=== PATIENT | female | born 1980 | race Caucasian/White ===

== ENCOUNTER 2018-09-09 15:54 | Emergency (ER) | payer BC ==
[~2018-09-09] VITALS: Ht 157.5 cm; Wt 67.6 kg
[2018-09-09 16:07] VITALS: BP 171/98
--- NOTE | 2018-09-09 16:10 | NUR ---
PATIENT AMBULATED WITH PARENT TO BED 6
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
[2018-09-09] MEDS ORDERED: KETOROLAC 60 MG/2 ML VIAL IM ONE ×2 (16:55→17:24)
[2018-09-09 17:49] VITALS: BP 175/90
== END 2018-09-09 17:49 | disposition home or self-care (01) ==
LOC: MED 15:54
DX: R51 Headache (principal); I10 Essential (primary) hypertension; F41.9 Anxiety disorder, unspecified; Z98.890 Other specified postprocedural states
CPT/HCPCS: 96372; 99283; J1885

== ENCOUNTER 2023-10-25 20:00 | Inpatient (IN) | payer BC ==
[~2023-10-25] VITALS: Ht 157.5 cm; Wt 57.4 kg
[2023-10-25] MEDS: NACL 0.9% 1,000 ML IV ONE ×2 (00:15→20:55)
[2023-10-25 20:04] VITALS: BP_SYST 138; BP_SYST 153; BP_DIAS 84; BP_DIAS 89; PULSE 130; RESP 16; RESP 40; TEMP 101; O2SAT 96; O2SAT 98
[2023-10-25] MEDS: ACETAMINOPHEN EXTRA STRENGTH 500 MG TAB PO ONE (21:01)
[2023-10-25 21:04] LABS: BASOPHILS % (AUTO) 0.9 % (0.0-2.0); EOSINOPHILS % (AUTO) 0.3 % (0.0-4.0); HEMATOCRIT 21.9 % (36-48); HEMOGLOBIN 7.2 g/dL (12.0-16.0); LYMPHOCYTES # (AUTO) 0.4 K/uL (2.5-16.5); LYMPHOCYTES % (AUTO) 10.5 % (20.5-51.1); MEAN CORPUSCULAR HEMOGLOBIN 25 pg (27-31); MEAN CORPUSCULAR HGB CONC 33 g/dL (33-37); MONOCYTES # (AUTO) 0.1 K/uL (0.8-1.0); MONOCYTES % (AUTO) 2.7 % (1.7-9.3); NEUTROPHILS # (AUTO) 3.1 K/uL (1.8-7.7); NEUTROPHILS % (AUTO) 85.6 % (42.2-75.2); PLATELET COUNT (AUTO) 305 K/uL (140-450); RED BLOOD CELL COUNT(AUTO) 2.88 MIL/uL (4.20-5.40); RED CELL DISTRIBUTION WIDTH 17.2 % (11.6-13.7); WHITE BLOOD COUNT (AUTO) 3.6 K/uL (4.8-10.8)
[2023-10-25 21:23] LABS: ANION GAP 10.5 (8-16); CALCIUM 8.7 mg/dL (8.5-10.1); CARBON DIOXIDE 26.8 mmol/L (21-32); CREATININE 0.5 mg/dL (0.6-1.3); POTASSIUM 4.3 mmol/L (3.5-5.1)
[2023-10-25 21:30] LABS: ALANINE AMINOTRANSFERASE 132 U/L (12-78); ALBUMIN 2.1 g/dL (3.4-5.0); ALKALINE PHOSPHATASE 540 U/L (50-136); ASPARTATE AMINOTRANSFERASE 251 U/L (15-37); BILIRUBIN,DIRECT 0.5 mg/dL (0.0-0.3); CREATINE KINASE, TOTAL 6 U/L (26-192); FLU A ANTIGEN negative (NEGATIVE); FLU B ANTIGEN negative (NEGATIVE); TOTAL BILIRUBIN 0.7 mg/dL (0.0-1.0)
[2023-10-25 21:32] LABS: LACTIC ACID 0.9 mmol/L (0.4-2.0)
[2023-10-25 21:36] LABS: INR 1.04 (0.8-1.2); PROTHROMBIN TIME 10.9 secs (10.8-13.4)
[2023-10-25 21:42] LABS: PARTIAL THROMBOPLASTIN TIME 18.1 secs (22-35.6)
[2023-10-25 21:57] LABS: BLOOD GAS BASE EXCESS 1.4 mmol/L (-2.0-3.0); BLOOD GAS HCO3 24.1 mmol/L (21.0-28.0); BLOOD GAS O2 SAT% 90.8 % (94.0-98.0); BLOOD GAS PCO2 30.4 mmHg (32.0-45.0); BLOOD GAS PH 7.517 (7.350-7.450); BLOOD GAS PO2 56.5 mmHg (83.0-108.0)
[2023-10-25 22:09] LABS: APPEARANCE,URINE CLEAR (CLEAR); BILIRUBIN,URINE NEGATIVE (NEGATIVE); BLOOD, URINE NEGATIVE (NEGATIVE); COLOR,URINE YELLOW (YELLOW); LEUKOCYTE ESTERASE ,URINE NEGATIVE (NEGATIVE); NITRITE, URINE NEGATIVE (NEGATIVE); PH,URINE 7.5 (5.0-9.0); PROTEIN,URINE NEGATIVE (NEGATIVE); UGLUCOSE NEGATIVE (NEGATIVE); UROBILINOGEN,URINE 0.2 EU/dL (0.2 - 1)
[2023-10-25] MEDS ORDERED: cefTRIAXone 1,000 MG VIAL ONE (23:01)
[2023-10-25] MEDS: AZITHROMYCIN 250 MG TAB PO ONE (23:11)
[2023-10-25 23:14] VITALS: PULSE 103; RESP 22; O2SAT 95
[2023-10-25] MEDS: ALBUTEROL SULFATE/IPRATROPIU 3 ML SOL IH ONE (23:14)
[2023-10-26] VITALS (8 sets, daily range): BP systolic 125–140; BP diastolic 78–88; PULSE 101–125; RESP 18–22; TEMP 97.6–99.5; O2SAT 93–99
[2023-10-26 06:57] LABS: BASOPHILS % (AUTO) 0.4 % (0.0-2.0); EOSINOPHILS % (AUTO) 0.3 % (0.0-4.0); HEMATOCRIT 26.1 % (36-48); HEMOGLOBIN 8.5 g/dL (12.0-16.0); LYMPHOCYTES # (AUTO) 0.4 K/uL (2.5-16.5); LYMPHOCYTES % (AUTO) 12.3 % (20.5-51.1); MEAN CORPUSCULAR HEMOGLOBIN 25 pg (27-31); MEAN CORPUSCULAR HGB CONC 32 g/dL (33-37); MEAN CORPUSCULAR VOLUME 76.8 fL (80-94); MONOCYTES # (AUTO) 0.1 K/uL (0.8-1.0); MONOCYTES % (AUTO) 3.6 % (1.7-9.3); NEUTROPHILS # (AUTO) 2.9 K/uL (1.8-7.7); NEUTROPHILS % (AUTO) 83.4 % (42.2-75.2); PLATELET COUNT (AUTO) 335 K/uL (140-450); RED CELL DISTRIBUTION WIDTH 17.6 % (11.6-13.7); WHITE BLOOD COUNT (AUTO) 3.5 K/uL (4.8-10.8)
[2023-10-26 07:05] LABS: ANION GAP 12.8 (8-16); CALCIUM 8.5 mg/dL (8.5-10.1); CARBON DIOXIDE 23.3 mmol/L (21-32); CREATININE 0.5 mg/dL (0.6-1.3); POTASSIUM 4.1 mmol/L (3.5-5.1)
[2023-10-26 07:08] LABS: MAGNESIUM 1.2 mg/dL (1.8-2.4); PHOSPHORUS 4.2 mg/dL (2.5-4.9)
[2023-10-26] MEDS ORDERED: POTASSIUM CHLORIDE 10 MEQ TABER PO PRN (11:35)
[2023-10-26] MEDS: LEVALBUTEROL 1.25 MG/0.5 ML NEBU INH SCH (11:59)
[2023-10-26] MEDS: AZITHROMYCIN 500 MG in DEXTROSE 5% 250 ML IV SCH (12:13)
[2023-10-26 13:35] LABS: AMPHETAMINE, URINE NEGATIVE ng/ml (NEG <=1000); BARBITURATE, URINE NEGATIVE ng/ml (NEG <=200); BENZODIAZEPINE, URINE NEGATIVE ng/mL (NEG <=200); CANNABINOID, URINE NEGATIVE ng/mL (NEG <=50); COCAINE, URINE NEGATIVE ng/mL (NEG <=300); OPIATE, URINE NEGATIVE ng/mL (NEG <=2000); PHENCYCLIDINE SCREEN,URINE NEGATIVE ng/mL (NEG <=25)
[2023-10-26] MEDS: ONDANSETRON 4 MG/2 ML VIAL IVP PRN (16:49)
[2023-10-26] MEDS: MAGNESIUM OXIDE 400 MG TAB PO PRN (19:19)
[2023-10-26] MEDS: ACETAMINOPHEN 325 MG TAB PO PRN (20:00)
[2023-10-26] MEDS ORDERED: AZITHROMYCIN 500 MG in DEXTROSE 5% 250 ML IV SCH (21:00)
[2023-10-27] VITALS (7 sets, daily range): BP systolic 117–140; BP diastolic 68–70; PULSE 96–117; RESP 16–20; TEMP 97.2–98.9; O2SAT 95–97
[2023-10-27 06:33] LABS: BASOPHILS % (AUTO) 0.2 % (0.0-2.0); EOSINOPHILS % (AUTO) 0.2 % (0.0-4.0); HEMATOCRIT 23.7 % (36-48); HEMOGLOBIN 7.7 g/dL (12.0-16.0); LYMPHOCYTES # (AUTO) 0.4 K/uL (2.5-16.5); LYMPHOCYTES % (AUTO) 13.1 % (20.5-51.1); MEAN CORPUSCULAR HEMOGLOBIN 25 pg (27-31); MEAN CORPUSCULAR HGB CONC 33 g/dL (33-37); MEAN CORPUSCULAR VOLUME 76.3 fL (80-94); MONOCYTES # (AUTO) 0.1 K/uL (0.8-1.0); MONOCYTES % (AUTO) 2.8 % (1.7-9.3); NEUTROPHILS # (AUTO) 2.8 K/uL (1.8-7.7); NEUTROPHILS % (AUTO) 83.7 % (42.2-75.2); PLATELET COUNT (AUTO) 375 K/uL (140-450); RED BLOOD CELL COUNT(AUTO) 3.11 MIL/uL (4.20-5.40); RED CELL DISTRIBUTION WIDTH 17.3 % (11.6-13.7); WHITE BLOOD COUNT (AUTO) 3.3 K/uL (4.8-10.8)
[2023-10-27 06:50] LABS: ALBUMIN 1.9 g/dL (3.4-5.0); CALCIUM 8.3 mg/dL (8.5-10.1); CREATININE 0.5 mg/dL (0.6-1.3); MAGNESIUM 1.5 mg/dL (1.8-2.4); PHOSPHORUS 4.2 mg/dL (2.5-4.9); POTASSIUM 4.1 mmol/L (3.5-5.1); TOTAL BILIRUBIN 0.7 mg/dL (0.0-1.0); TOTAL PROTEIN, SERUM 6.8 g/dL (6.4-8.2)
[2023-10-27 06:56] LABS: ANION GAP 11.7 (8-16); CARBON DIOXIDE 25.4 mmol/L (21-32)
[2023-10-27 19:56] LABS: APPEARANCE,SPUN,BODY FLUID CLEAR (CLEAR); APPEARANCE,UNSPUN,BODY FLUID CLEAR (CLEAR); COLOR,BODY FLUID LT YELLOW (LT YELLOW); SPECIMENTYPE,BODY FLUID THORACENTESIS; TOTAL VOLUME,BODY FLUID 550 mL
[2023-10-27 20:19] LABS: RBC, BODY FLUID 28 /cu. mm.; WBC, BODY FLUID 2 /cu. mm.
[2023-10-27 20:20] LABS: POLYNUCLEAR, BODY FLUID 0 %
[2023-10-27 20:24] LABS: GLUCOSE,BODY FLUID 89 mg/dL
[2023-10-27] MEDS: MAGNESIUM OXIDE 400 MG TAB PO PRN (22:58)
[2023-10-28] VITALS (7 sets, daily range): BP systolic 115–139; BP diastolic 75–83; PULSE 94–117; RESP 16–18; TEMP 97.7–98.1; O2SAT 93–99
[2023-10-28 06:42] LABS: EOSINOPHILS % (AUTO) 0.1 % (0.0-4.0); HEMATOCRIT 23.4 % (36-48); HEMOGLOBIN 7.7 g/dL (12.0-16.0); LYMPHOCYTES # (AUTO) 0.4 K/uL (2.5-16.5); MEAN CORPUSCULAR HEMOGLOBIN 25 pg (27-31); MEAN CORPUSCULAR HGB CONC 33 g/dL (33-37); MEAN CORPUSCULAR VOLUME 76.3 fL (80-94); MONOCYTES # (AUTO) 0.2 K/uL (0.8-1.0); MONOCYTES % (AUTO) 5.7 % (1.7-9.3); NEUTROPHILS # (AUTO) 2.7 K/uL (1.8-7.7); NEUTROPHILS % (AUTO) 82.2 % (42.2-75.2); PLATELET COUNT (AUTO) 368 K/uL (140-450); RED BLOOD CELL COUNT(AUTO) 3.06 MIL/uL (4.20-5.40); RED CELL DISTRIBUTION WIDTH 17.6 % (11.6-13.7); WHITE BLOOD COUNT (AUTO) 3.3 K/uL (4.8-10.8)
[2023-10-28 06:48] LABS: ALBUMIN 1.9 g/dL (3.4-5.0); ANION GAP 10.9 (8-16); CARBON DIOXIDE 26.2 mmol/L (21-32); CREATININE 0.5 mg/dL (0.6-1.3); MAGNESIUM 1.5 mg/dL (1.8-2.4); PHOSPHORUS 3.2 mg/dL (2.5-4.9); POTASSIUM 4.1 mmol/L (3.5-5.1); TOTAL BILIRUBIN 0.6 mg/dL (0.0-1.0); TOTAL PROTEIN, SERUM 6.7 g/dL (6.4-8.2)
[2023-10-28 09:06] LABS: HEPATITIS A ANTIBODY IGM Negative (Negative); HEPATITIS B CORE AB TOTAL Negative (Negative); HEPATITIS B CORE, IGM Negative (Negative); HEPATITIS B SURFACE ANTIBODY Reactive (.); HEPATITIS B SURFACE ANTIGEN Negative (Negative); HEPATITIS C VIRUS ANTIBODY Non Reactive (Non Reactive)
[2023-10-28] MEDS: METOPROLOL SUCCINATE 50 MG TABER PO SCH (12:14)
[2023-10-29] VITALS (8 sets, daily range): BP systolic 118–122; BP diastolic 70–80; PULSE 85–119; RESP 16–30; TEMP 97.4–98.5; O2SAT 94–100
[2023-10-29 06:51] LABS: LYMPHOCYTES # (AUTO) 0.4 K/uL (2.5-16.5); MONOCYTES # (AUTO) 0.1 K/uL (0.8-1.0); NEUTROPHILS # (AUTO) 1.9 K/uL (1.8-7.7)
[2023-10-29 07:03] LABS: BASOPHILS % (AUTO) 0.5 % (0.0-2.0); EOSINOPHILS % (AUTO) 0.9 % (0.0-4.0); HEMATOCRIT 21.6 % (36-48); LYMPHOCYTES % (AUTO) 15.9 % (20.5-51.1); MEAN CORPUSCULAR HEMOGLOBIN 25 pg (27-31); MEAN CORPUSCULAR HGB CONC 33 g/dL (33-37); MEAN CORPUSCULAR VOLUME 76.2 fL (80-94); MONOCYTES % (AUTO) 4.9 % (1.7-9.3); NEUTROPHILS % (AUTO) 77.8 % (42.2-75.2); PLATELET COUNT (AUTO) 324 K/uL (140-450); RED BLOOD CELL COUNT(AUTO) 2.84 MIL/uL (4.20-5.40); RED CELL DISTRIBUTION WIDTH 17.5 % (11.6-13.7)
[2023-10-29 07:04] LABS: ALBUMIN 1.8 g/dL (3.4-5.0); ANION GAP 10.6 (8-16); CARBON DIOXIDE 25.1 mmol/L (21-32); CREATININE 0.5 mg/dL (0.6-1.3); MAGNESIUM 1.7 mg/dL (1.8-2.4); PHOSPHORUS 3.5 mg/dL (2.5-4.9); POTASSIUM 3.7 mmol/L (3.5-5.1); TOTAL BILIRUBIN 0.5 mg/dL (0.0-1.0); TOTAL PROTEIN, SERUM 6.3 g/dL (6.4-8.2)
[2023-10-29 07:37] LABS: WHITE BLOOD COUNT (AUTO) 2.4 K/uL (4.8-10.8)
[2023-10-29 07:39] LABS: HEMOGLOBIN 7.1 g/dL (12.0-16.0)
[2023-10-29] MEDS ORDERED: LEVOFLOXACIN 750 MG/D5W PREMIX 150 ML IV SCH (11:35)
[2023-10-29] MEDS: metroNIDAZOLE 500 MG/NS PREMIX 100 ML IV SCH (14:59)
[2023-10-29] MEDS: LEVOFLOXACIN 750 MG/D5W PREMIX 150 ML IV SCH (21:40)
[2023-10-29] MEDS: LEVALBUTEROL 1.25 MG/0.5 ML NEBU INH PRN (23:21)
[2023-10-29 23:25] LABS: HEMATOCRIT 32.6 % (36-48); HEMOGLOBIN 10.9 g/dL (12.0-16.0)
[2023-10-30] VITALS (9 sets, daily range): BP systolic 128–149; BP diastolic 80–82; PULSE 95–114; RESP 16–20; TEMP 98.1–98.7; O2SAT 91–98
[2023-10-30] MEDS: MORPHINE SULFATE 4 MG/ML SYR IVP PRN (00:16)
[2023-10-30 10:00] LABS: BASOPHILS % (AUTO) 0.4 % (0.0-2.0); HEMATOCRIT 31.4 % (36-48); HEMOGLOBIN 10.3 g/dL (12.0-16.0); LYMPHOCYTES # (AUTO) 0.4 K/uL (2.5-16.5); LYMPHOCYTES % (AUTO) 12.7 % (20.5-51.1); MEAN CORPUSCULAR HEMOGLOBIN 26 pg (27-31); MEAN CORPUSCULAR HGB CONC 33 g/dL (33-37); MEAN CORPUSCULAR VOLUME 79.6 fL (80-94); MONOCYTES # (AUTO) 0.1 K/uL (0.8-1.0); MONOCYTES % (AUTO) 4.4 % (1.7-9.3); NEUTROPHILS # (AUTO) 2.6 K/uL (1.8-7.7); NEUTROPHILS % (AUTO) 82.5 % (42.2-75.2); PLATELET COUNT (AUTO) 357 K/uL (140-450); RED BLOOD CELL COUNT(AUTO) 3.94 MIL/uL (4.20-5.40); RED CELL DISTRIBUTION WIDTH 17.5 % (11.6-13.7); WHITE BLOOD COUNT (AUTO) 3.1 K/uL (4.8-10.8)
[2023-10-30 10:13] LABS: ALBUMIN 1.8 g/dL (3.4-5.0); CREATININE 0.6 mg/dL (0.6-1.3); MAGNESIUM 1.6 mg/dL (1.8-2.4); PHOSPHORUS 3.1 mg/dL (2.5-4.9); TOTAL BILIRUBIN 0.8 mg/dL (0.0-1.0); TOTAL PROTEIN, SERUM 6.6 g/dL (6.4-8.2)
[2023-10-30] MEDS: MORPHINE SULFATE 2 MG/ML SYR IVP PRN (18:06)
[2023-10-31] VITALS (8 sets, daily range): BP systolic 130–144; BP diastolic 84–97; PULSE 104–117; RESP 18–24; TEMP 98–100.1; O2SAT 93–99
[2023-10-31] MEDS: DEXT 5% / NACL 0.9% 500 ML IV SCH (01:31)
[2023-10-31 06:40] LABS: BASOPHILS % (AUTO) 0.2 % (0.0-2.0); HEMATOCRIT 32.1 % (36-48); HEMOGLOBIN 10.7 g/dL (12.0-16.0); LYMPHOCYTES # (AUTO) 0.3 K/uL (2.5-16.5); LYMPHOCYTES % (AUTO) 8.6 % (20.5-51.1); MEAN CORPUSCULAR HEMOGLOBIN 27 pg (27-31); MEAN CORPUSCULAR HGB CONC 33 g/dL (33-37); MEAN CORPUSCULAR VOLUME 79.6 fL (80-94); MONOCYTES # (AUTO) 0.1 K/uL (0.8-1.0); MONOCYTES % (AUTO) 3.8 % (1.7-9.3); NEUTROPHILS # (AUTO) 3.4 K/uL (1.8-7.7); NEUTROPHILS % (AUTO) 87.4 % (42.2-75.2); PLATELET COUNT (AUTO) 371 K/uL (140-450); RED BLOOD CELL COUNT(AUTO) 4.04 MIL/uL (4.20-5.40); RED CELL DISTRIBUTION WIDTH 17.9 % (11.6-13.7); WHITE BLOOD COUNT (AUTO) 3.9 K/uL (4.8-10.8)
[2023-10-31 07:00] LABS: ALBUMIN 1.9 g/dL (3.4-5.0); ANION GAP 9.2 (8-16); CALCIUM 8.1 mg/dL (8.5-10.1); CARBON DIOXIDE 24.6 mmol/L (21-32); CREATININE 0.5 mg/dL (0.6-1.3); MAGNESIUM 1.5 mg/dL (1.8-2.4); POTASSIUM 3.8 mmol/L (3.5-5.1); TOTAL PROTEIN, SERUM 6.7 g/dL (6.4-8.2)
[2023-10-31] MEDS: NACL 0.9% 1,000 ML IV SCH (12:23)
[2023-10-31] MEDS: MAG SULF 2000 MG/WATER PREMIX 50 ML IV SCH (18:48)
[2023-11-01] VITALS (9 sets, daily range): BP systolic 130–143; BP diastolic 63–87; PULSE 77–125; RESP 16–24; TEMP 98.5–98.8; O2SAT 94–100
[2023-11-01 06:55] LABS: BASOPHILS % (AUTO) 0.3 % (0.0-2.0); EOSINOPHILS % (AUTO) 0.1 % (0.0-4.0); LYMPHOCYTES # (AUTO) 0.3 K/uL (2.5-16.5); LYMPHOCYTES % (AUTO) 11.1 % (20.5-51.1); MEAN CORPUSCULAR HEMOGLOBIN 27 pg (27-31); MEAN CORPUSCULAR HGB CONC 33 g/dL (33-37); MEAN CORPUSCULAR VOLUME 79.7 fL (80-94); MONOCYTES # (AUTO) 0.1 K/uL (0.8-1.0); MONOCYTES % (AUTO) 4.9 % (1.7-9.3); NEUTROPHILS # (AUTO) 2.1 K/uL (1.8-7.7); NEUTROPHILS % (AUTO) 83.6 % (42.2-75.2); PLATELET COUNT (AUTO) 329 K/uL (140-450); RED BLOOD CELL COUNT(AUTO) 3.77 MIL/uL (4.20-5.40); RED CELL DISTRIBUTION WIDTH 18.7 % (11.6-13.7); WHITE BLOOD COUNT (AUTO) 2.6 K/uL (4.8-10.8)
[2023-11-01 06:59] LABS: INR 1.06 (0.8-1.2); PROTHROMBIN TIME 11.1 secs (10.8-13.4)
[2023-11-01 07:14] LABS: ALBUMIN 1.7 g/dL (3.4-5.0); CALCIUM 7.5 mg/dL (8.5-10.1); CARBON DIOXIDE 20.4 mmol/L (21-32); CREATININE 0.4 mg/dL (0.6-1.3); POTASSIUM 3.4 mmol/L (3.5-5.1); TOTAL BILIRUBIN 0.8 mg/dL (0.0-1.0); TOTAL PROTEIN, SERUM 6.3 g/dL (6.4-8.2)
[2023-11-01 07:20] LABS: MAGNESIUM 1.5 mg/dL (1.8-2.4); PHOSPHORUS 2.5 mg/dL (2.5-4.9)
[2023-11-01] MEDS: POTASSIUM CHLORIDE 10 MEQ TABER PO PRN (08:42)
[2023-11-02] VITALS (7 sets, daily range): BP systolic 138–147; BP diastolic 79–91; PULSE 98–125; RESP 18–20; TEMP 97.4–99.3; O2SAT 20–100
[2023-11-02 07:12] LABS: ALBUMIN 1.8 g/dL (3.4-5.0); ANION GAP 12.8 (8-16); CALCIUM 7.6 mg/dL (8.5-10.1); CARBON DIOXIDE 21.5 mmol/L (21-32); CREATININE 0.5 mg/dL (0.6-1.3); POTASSIUM 3.3 mmol/L (3.5-5.1); TOTAL BILIRUBIN 0.8 mg/dL (0.0-1.0); TOTAL PROTEIN, SERUM 6.4 g/dL (6.4-8.2)
[2023-11-02 07:14] LABS: BASOPHILS % (AUTO) 0.2 % (0.0-2.0); HEMATOCRIT 30.6 % (36-48); HEMOGLOBIN 10.2 g/dL (12.0-16.0); LYMPHOCYTES # (AUTO) 0.4 K/uL (2.5-16.5); LYMPHOCYTES % (AUTO) 16.3 % (20.5-51.1); MEAN CORPUSCULAR HEMOGLOBIN 27 pg (27-31); MEAN CORPUSCULAR HGB CONC 33 g/dL (33-37); MEAN CORPUSCULAR VOLUME 79.9 fL (80-94); MONOCYTES # (AUTO) 0.1 K/uL (0.8-1.0); MONOCYTES % (AUTO) 3.8 % (1.7-9.3); NEUTROPHILS # (AUTO) 1.9 K/uL (1.8-7.7); NEUTROPHILS % (AUTO) 79.7 % (42.2-75.2); PLATELET COUNT (AUTO) 348 K/uL (140-450); RED BLOOD CELL COUNT(AUTO) 3.82 MIL/uL (4.20-5.40); RED CELL DISTRIBUTION WIDTH 18.5 % (11.6-13.7); WHITE BLOOD COUNT (AUTO) 2.4 K/uL (4.8-10.8)
[2023-11-02] MEDS ORDERED: ACETAMINOPHEN 100 ML IV SCH (14:35)
[2023-11-02] MEDS ORDERED: HYDROmorphone 1 MG/ML AMP IVP PRN (14:35)
[2023-11-02] MEDS: LACTATED RINGERS 1,000 ML IV SCH (14:35)
[2023-11-02] MEDS ORDERED: ONDANSETRON 4 MG/2 ML VIAL IVP PRN (14:35)
[2023-11-02] MEDS ORDERED: MIDAZOLAM 2 MG/2 ML VIAL ONE (14:51)
[2023-11-02] MEDS ORDERED: ROCURONIUM 50 MG/5 ML VIAL IV ONE (14:51)
[2023-11-02] MEDS ORDERED: SEVOFLURANE 250 ML BTL INH ONE (14:51)
[2023-11-02] MEDS ORDERED: PROPOFOL 200 MG/20 ML VIAL IV ONE (14:51)
[2023-11-02] MEDS ORDERED: ONDANSETRON 4 MG/2 ML VIAL ONE (14:51)
[2023-11-02] MEDS ORDERED: SUCCINYLCHOLINE CHLORIDE 200 MG/10 ML VIAL IVP ONE (14:51)
[2023-11-02] MEDS ORDERED: DEXAMETHASONE 4 MG/ML VIAL ONE (14:51)
[2023-11-02] MEDS ORDERED: SUGAMMADEX SODIUM 200 MG/2 ML VIAL IV ONE (14:51)
[2023-11-02] MEDS: ceFAZolin 1,000 MG VIAL ONE (14:56)
[2023-11-02] MEDS: LIDOCAINE/EPI 1% 1:100000 20 ML VIAL INJ ONE (16:02)
[2023-11-03] VITALS (8 sets, daily range): BP systolic 141–157; BP diastolic 77–88; PULSE 62–104; RESP 16–18; TEMP 97.7–98.5; O2SAT 94–100
[2023-11-03 06:51] LABS: BASOPHILS % (AUTO) 0.2 % (0.0-2.0); HEMATOCRIT 31.3 % (36-48); HEMOGLOBIN 10.4 g/dL (12.0-16.0); LYMPHOCYTES # (AUTO) 0.4 K/uL (2.5-16.5); LYMPHOCYTES % (AUTO) 15.3 % (20.5-51.1); MEAN CORPUSCULAR HEMOGLOBIN 26 pg (27-31); MEAN CORPUSCULAR HGB CONC 33 g/dL (33-37); MEAN CORPUSCULAR VOLUME 79.9 fL (80-94); MONOCYTES # (AUTO) 0.2 K/uL (0.8-1.0); MONOCYTES % (AUTO) 7.7 % (1.7-9.3); NEUTROPHILS # (AUTO) 2.2 K/uL (1.8-7.7); NEUTROPHILS % (AUTO) 76.8 % (42.2-75.2); PLATELET COUNT (AUTO) 355 K/uL (140-450); RED BLOOD CELL COUNT(AUTO) 3.92 MIL/uL (4.20-5.40); RED CELL DISTRIBUTION WIDTH 18.7 % (11.6-13.7); WHITE BLOOD COUNT (AUTO) 2.8 K/uL (4.8-10.8)
[2023-11-03 07:13] LABS: CALCIUM 7.6 mg/dL (8.5-10.1); CARBON DIOXIDE 20.4 mmol/L (21-32); CREATININE 0.4 mg/dL (0.6-1.3); POTASSIUM 3.4 mmol/L (3.5-5.1)
[2023-11-03] MEDS: CRUSHER, PILL MC ONE (08:51)
[2023-11-03 11:13] LABS: ALBUMIN 1.7 g/dL (3.4-5.0); BILIRUBIN,DIRECT 0.6 mg/dL (0.0-0.3); TOTAL BILIRUBIN 0.9 mg/dL (0.0-1.0); TOTAL PROTEIN, SERUM 6.1 g/dL (6.4-8.2)
[2023-11-03] MEDS: SERTRALINE 50 MG TAB PO SCH (14:56)
[2023-11-03] MEDS: PIPERACILLIN/TAZOBACTAM 3.375 GM in DEXTROSE 5% 50 ML IV SCH (23:29)
[2023-11-04 04:00] VITALS: BP 155/90; PULSE 107; RESP 18; TEMP 97.9; O2SAT 98
[2023-11-04 06:56] LABS: BASOPHILS % (AUTO) 0.2 % (0.0-2.0); HEMATOCRIT 31.1 % (36-48); HEMOGLOBIN 10.3 g/dL (12.0-16.0); LYMPHOCYTES # (AUTO) 0.3 K/uL (2.5-16.5); LYMPHOCYTES % (AUTO) 9.3 % (20.5-51.1); MEAN CORPUSCULAR HEMOGLOBIN 26 pg (27-31); MEAN CORPUSCULAR HGB CONC 33 g/dL (33-37); MEAN CORPUSCULAR VOLUME 79.5 fL (80-94); MONOCYTES # (AUTO) 0.2 K/uL (0.8-1.0); MONOCYTES % (AUTO) 6.2 % (1.7-9.3); NEUTROPHILS % (AUTO) 84.3 % (42.2-75.2); PLATELET COUNT (AUTO) 357 K/uL (140-450); RED BLOOD CELL COUNT(AUTO) 3.91 MIL/uL (4.20-5.40); RED CELL DISTRIBUTION WIDTH 18.5 % (11.6-13.7); WHITE BLOOD COUNT (AUTO) 3.6 K/uL (4.8-10.8)
[2023-11-04 07:26] VITALS: O2SAT 94
[2023-11-04 07:42] LABS: ALBUMIN 1.7 g/dL (3.4-5.0); ANION GAP 13.2 (8-16); CALCIUM 7.5 mg/dL (8.5-10.1); CARBON DIOXIDE 20.1 mmol/L (21-32); CREATININE 0.4 mg/dL (0.6-1.3); POTASSIUM 3.3 mmol/L (3.5-5.1); TOTAL BILIRUBIN 1.1 mg/dL (0.0-1.0); TOTAL PROTEIN, SERUM 6.2 g/dL (6.4-8.2)
[2023-11-04 08:00] VITALS: BP 144/87; PULSE 106; RESP 18; TEMP 97; O2SAT 98
[2023-11-04 16:00] VITALS: BP 144/83; PULSE 104; RESP 18; TEMP 98.8; O2SAT 97
[2023-11-04] MEDS: fentaNYL citrate 0.05 MG/ML VIAL ONE ×2 (17:32→17:35)
[2023-11-04] MEDS: MIDAZOLAM 2 MG/2 ML VIAL ONE (17:32)
[2023-11-04] MEDS: DEXAMETHASONE 4 MG/ML VIAL ONE (17:33)
[2023-11-04] MEDS: PROPOFOL 200 MG/20 ML VIAL IV ONE (17:33)
[2023-11-04] MEDS: ONDANSETRON 4 MG/2 ML VIAL ONE (17:33)
[2023-11-04] MEDS: SUCCINYLCHOLINE CHLORIDE 200 MG/10 ML VIAL IVP ONE (17:33)
[2023-11-04] MEDS: ROCURONIUM 50 MG/5 ML VIAL IV ONE (17:34)
[2023-11-04] MEDS: PHENYLEPHRINE 10 MG/ML VIAL ONE (17:34)
[2023-11-04] MEDS: WATER STERILE 10 ML MC ONE ×2 (17:34)
[2023-11-04] MEDS: SUGAMMADEX SODIUM 200 MG/2 ML VIAL IV ONE (17:35)
[2023-11-04] MEDS: HYDROcodone/APAP 5/325 MG 1 TAB TAB PO PRN (17:56)
[2023-11-04 19:50] VITALS: O2SAT 96
[2023-11-04 20:00] VITALS: BP 150/90; PULSE 96; RESP 20; TEMP 98; O2SAT 98
[2023-11-04] MEDS: SERTRALINE 50 MG TAB PO SCH (20:08)
[2023-11-05 04:00] VITALS: BP 150/78; PULSE 99; RESP 20; TEMP 97.4; O2SAT 98
[2023-11-05 06:41] LABS: BASOPHILS % (AUTO) 0.2 % (0.0-2.0); HEMATOCRIT 32.9 % (36-48); HEMOGLOBIN 11.1 g/dL (12.0-16.0); LYMPHOCYTES # (AUTO) 0.8 K/uL (2.5-16.5); LYMPHOCYTES % (AUTO) 15.9 % (20.5-51.1); MEAN CORPUSCULAR HEMOGLOBIN 27 pg (27-31); MEAN CORPUSCULAR HGB CONC 34 g/dL (33-37); MONOCYTES # (AUTO) 0.2 K/uL (0.8-1.0); MONOCYTES % (AUTO) 4.7 % (1.7-9.3); NEUTROPHILS # (AUTO) 4.1 K/uL (1.8-7.7); NEUTROPHILS % (AUTO) 79.2 % (42.2-75.2); PLATELET COUNT (AUTO) 456 K/uL (140-450); RED BLOOD CELL COUNT(AUTO) 4.17 MIL/uL (4.20-5.40); RED CELL DISTRIBUTION WIDTH 19.1 % (11.6-13.7); WHITE BLOOD COUNT (AUTO) 5.2 K/uL (4.8-10.8)
[2023-11-05 07:03] LABS: ALBUMIN 1.8 g/dL (3.4-5.0); BILIRUBIN,DIRECT 0.9 mg/dL (0.0-0.3); TOTAL BILIRUBIN 1.2 mg/dL (0.0-1.0); TOTAL PROTEIN, SERUM 6.6 g/dL (6.4-8.2)
[2023-11-05 07:32] VITALS: O2SAT 95
[2023-11-05 08:00] VITALS: BP 158/91; PULSE 99; RESP 18; TEMP 98.9; O2SAT 98
[2023-11-05 08:14] LABS: ALBUMIN 1.9 g/dL (3.4-5.0); ANION GAP 12.7 (8-16); CARBON DIOXIDE 21.6 mmol/L (21-32); CREATININE 0.4 mg/dL (0.6-1.3); POTASSIUM 3.3 mmol/L (3.5-5.1); TOTAL BILIRUBIN 1.2 mg/dL (0.0-1.0); TOTAL PROTEIN, SERUM 6.8 g/dL (6.4-8.2)
[2023-11-05] MEDS: POTASSIUM CHLORIDE 20 MEQ, LIDOCAINE 1% 25 MG in NACL 0.9% 250 ML IV SCH (10:45)
[2023-11-05 16:00] VITALS: BP 147/90; PULSE 104; RESP 18; TEMP 99.1; O2SAT 98
[2023-11-05 20:00] VITALS: BP 159/94; PULSE 106; RESP 18; RESP 20; TEMP 98; O2SAT 98
[2023-11-05 20:05] VITALS: PULSE 120; RESP 22; O2SAT 97
[2023-11-06 04:00] VITALS: BP 135/79; PULSE 92; RESP 18; TEMP 97.9; O2SAT 98
[2023-11-06 08:00] VITALS: PULSE 80; RESP 19; TEMP 96; O2SAT 96
[2023-11-06] MEDS ORDERED: POTASSIUM CHL 40 MEQ/ D5-1/2NS 1,000 ML IV SCH (10:30)
[2023-11-06] MEDS: POTASSIUM CHLORIDE 20% 40 MEQ/15 ML UDC GT PRN (13:24)
[2023-11-06 14:22] LABS: BASOPHILS % (AUTO) 0.4 % (0.0-2.0); EOSINOPHILS % (AUTO) 0.3 % (0.0-4.0); HEMATOCRIT 33.6 % (36-48); HEMOGLOBIN 11.1 g/dL (12.0-16.0); LYMPHOCYTES # (AUTO) 0.4 K/uL (2.5-16.5); MEAN CORPUSCULAR HEMOGLOBIN 26 pg (27-31); MEAN CORPUSCULAR HGB CONC 33 g/dL (33-37); MONOCYTES # (AUTO) 0.2 K/uL (0.8-1.0); MONOCYTES % (AUTO) 5.1 % (1.7-9.3); NEUTROPHILS # (AUTO) 4.2 K/uL (1.8-7.7); NEUTROPHILS % (AUTO) 85.2 % (42.2-75.2); PLATELET COUNT (AUTO) 425 K/uL (140-450); RED BLOOD CELL COUNT(AUTO) 4.25 MIL/uL (4.20-5.40); RED CELL DISTRIBUTION WIDTH 19.8 % (11.6-13.7); WHITE BLOOD COUNT (AUTO) 4.9 K/uL (4.8-10.8)
[2023-11-06 14:40] LABS: ALBUMIN 1.8 g/dL (3.4-5.0); ANION GAP 8.2 (8-16); CALCIUM 7.9 mg/dL (8.5-10.1); CARBON DIOXIDE 26.3 mmol/L (21-32); CREATININE 0.4 mg/dL (0.6-1.3); POTASSIUM 3.5 mmol/L (3.5-5.1); TOTAL BILIRUBIN 1.3 mg/dL (0.0-1.0); TOTAL PROTEIN, SERUM 6.5 g/dL (6.4-8.2)
[2023-11-06 19:20] VITALS: PULSE 111; RESP 20; O2SAT 99
[2023-11-06 20:00] VITALS: BP 136/82; PULSE 106; RESP 19; TEMP 97.6; O2SAT 96
[2023-11-06 22:03] VITALS: O2SAT 96
[2023-11-07 01:53] VITALS: O2SAT 96
[2023-11-07 04:00] VITALS: BP 158/80; PULSE 109; RESP 18; TEMP 97.3; O2SAT 100
[2023-11-07 07:23] LABS: BASOPHILS % (AUTO) 0.1 % (0.0-2.0); EOSINOPHILS % (AUTO) 0.2 % (0.0-4.0); HEMATOCRIT 29.3 % (36-48); HEMOGLOBIN 9.8 g/dL (12.0-16.0); LYMPHOCYTES # (AUTO) 0.3 K/uL (2.5-16.5); LYMPHOCYTES % (AUTO) 11.3 % (20.5-51.1); MEAN CORPUSCULAR HEMOGLOBIN 27 pg (27-31); MEAN CORPUSCULAR HGB CONC 33 g/dL (33-37); MEAN CORPUSCULAR VOLUME 79.5 fL (80-94); MONOCYTES # (AUTO) 0.1 K/uL (0.8-1.0); MONOCYTES % (AUTO) 4.4 % (1.7-9.3); NEUTROPHILS # (AUTO) 2.6 K/uL (1.8-7.7); PLATELET COUNT (AUTO) 373 K/uL (140-450); RED BLOOD CELL COUNT(AUTO) 3.68 MIL/uL (4.20-5.40); RED CELL DISTRIBUTION WIDTH 19.7 % (11.6-13.7); WHITE BLOOD COUNT (AUTO) 3.1 K/uL (4.8-10.8)
[2023-11-07 07:31] LABS: ANION GAP 10.7 (8-16); CALCIUM 7.6 mg/dL (8.5-10.1); CARBON DIOXIDE 24.5 mmol/L (21-32); CREATININE 0.4 mg/dL (0.6-1.3); POTASSIUM 3.2 mmol/L (3.5-5.1)
[2023-11-07 08:00] VITALS: PULSE 99; RESP 19; RESP 20; TEMP 97.7; O2SAT 96; O2SAT 97
[2023-11-07] MEDS: POTASSIUM CHLORIDE 40 MEQ, LIDOCAINE 1% 25 MG in NACL 0.9% 250 ML IV SCH (09:57)
[2023-11-07 10:16] VITALS: O2SAT 96
[2023-11-07] MEDS: FUROSEMIDE 40 MG/4 ML VIAL IVP SCH (12:19)
[2023-11-07 19:58] VITALS: O2SAT 97
[2023-11-07 20:00] VITALS: BP 131/78; PULSE 119; RESP 18; RESP 20; TEMP 98; O2SAT 95
[2023-11-08 04:00] VITALS: BP 139/64; PULSE 119; RESP 20; TEMP 97; O2SAT 98
[2023-11-08 06:58] LABS: BASOPHILS % (AUTO) 0.2 % (0.0-2.0); HEMOGLOBIN 10.1 g/dL (12.0-16.0); LYMPHOCYTES # (AUTO) 0.3 K/uL (2.5-16.5); LYMPHOCYTES % (AUTO) 8.1 % (20.5-51.1); MEAN CORPUSCULAR HEMOGLOBIN 27 pg (27-31); MEAN CORPUSCULAR HGB CONC 34 g/dL (33-37); MEAN CORPUSCULAR VOLUME 78.7 fL (80-94); MONOCYTES # (AUTO) 0.1 K/uL (0.8-1.0); MONOCYTES % (AUTO) 3.6 % (1.7-9.3); NEUTROPHILS # (AUTO) 3.3 K/uL (1.8-7.7); NEUTROPHILS % (AUTO) 88.1 % (42.2-75.2); PLATELET COUNT (AUTO) 424 K/uL (140-450); RED BLOOD CELL COUNT(AUTO) 3.82 MIL/uL (4.20-5.40); WHITE BLOOD COUNT (AUTO) 3.8 K/uL (4.8-10.8)
[2023-11-08 07:19] LABS: ALBUMIN 1.9 g/dL (3.4-5.0); ANION GAP 11.1 (8-16); CALCIUM 7.7 mg/dL (8.5-10.1); CARBON DIOXIDE 26.8 mmol/L (21-32); CREATININE 0.4 mg/dL (0.6-1.3); MAGNESIUM 1.3 mg/dL (1.8-2.4); PHOSPHORUS 3.3 mg/dL (2.5-4.9); TOTAL BILIRUBIN 1.2 mg/dL (0.0-1.0); TOTAL PROTEIN, SERUM 6.5 g/dL (6.4-8.2)
[2023-11-08 07:23] LABS: POTASSIUM 2.9 mmol/L (3.5-5.1)
[2023-11-08 08:00] VITALS: PULSE 98; RESP 18; RESP 20; TEMP 97.2; O2SAT 95; O2SAT 98
[2023-11-08 08:22] VITALS: O2SAT 97
[2023-11-08] MEDS: POTASSIUM CHLORIDE 20% 40 MEQ/15 ML UDC GT SCH (09:38)
[2023-11-08] MEDS: METOPROLOL SUCCINATE 50 MG TABER PO SCH (09:39)
[2023-11-08] MEDS: POTASSIUM CHLORIDE 40 MEQ, LIDOCAINE 1% 25 MG in NACL 0.9% 250 ML IV SCH (09:51)
[2023-11-08] MEDS ORDERED: METR-435 PO (14:41)
[2023-11-08] MEDS ORDERED: METO50TE2 PO (14:41)
[2023-11-08] MEDS ORDERED: SERT-515 PO (14:41)
[2023-11-08] MEDS ORDERED: CIPR500T4 PO (14:41)
[2023-11-08] MEDS: MAGNESIUM OXIDE 400 MG TAB PO SCH (16:31)
[2023-11-08 17:06] VITALS: BP 140/80; PULSE 121; RESP 19; TEMP 98.1
[2023-11-11] MEDS ORDERED: CIPR500T4 PO (11:08)
[2023-11-11] MEDS ORDERED: METR-520 PO (11:09)
== END 2023-11-08 18:40 | disposition home or self-care (01) | DRG 710 ==
LOC: MED 20:00 → MTU 10-26 02:54
PROVIDERS: ADMIT Student in an Organized Health Care Education/Training Program; ATTEND Student in an Organized Health Care Education/Training Program
PROC: 0W993ZZ Drainage of Right Pleural Cavity, Percutaneous Approach (ICD-10-PCS; 2023-10-27)
PROC: 30233N1 Transfusion of Nonautologous Red Blood Cells into Peripheral Vein, Percutaneous Approach (ICD-10-PCS; 2023-10-29)
PROC: 0FT44ZZ Resection of Gallbladder, Percutaneous Endoscopic Approach (ICD-10-PCS; principal; 2023-11-02 15:00)
DX: A41.9 Sepsis, unspecified organism (principal); J96.01 Acute respiratory failure with hypoxia; E43 Unspecified severe protein-calorie malnutrition; J15.69 Pneumonia due to other Gram-negative bacteria; K81.0 Acute cholecystitis; J90 Pleural effusion, not elsewhere classified; E87.1 Hypo-osmolality and hyponatremia; Z20.822 Contact with and (suspected) exposure to COVID-19; E83.42 Hypomagnesemia; D50.9 Iron deficiency anemia, unspecified; F41.9 Anxiety disorder, unspecified; I10 Essential (primary) hypertension; Z90.49 Acquired absence of other specified parts of digestive tract; Z98.891 History of uterine scar from previous surgery; Z68.23 Body mass index [BMI] 23.0-23.9, adult
CPT/HCPCS: 36415; 36600; 71045; 71275; 73610; 76604; 76705; 76942; 78445; 80048; 80053; 80076; 80305; 81003; 81025; 82272; 82550; 82553; 82803; 82945; 83605; 83735; 83874; 83880; 84100; 84132; 84157; 84484; 85018; 85025; 85610; 85730; 86704; 86706; 86708; 86709; 86803; 86886; 86900; 86901; 86920; 87040; 87081; 87086; 87340; 88304; 89051; 93005; 93971; 94640; 96361; 96365; 97116; 97163-GP; 99285; J0330; J0456; J0690; J0696; J1100; J1940; J1956; J2001; J2250; J2270; J2405; J2543; J2704; J3010; J3475; J3480; J3490; J7030; J7060; J7612; P9016; Q0092; Q9967